=== PATIENT | male | born 1955 | race Caucasian/White ===

== ENCOUNTER 2017-11-17 12:28 | Emergency (ER) | payer BC ==
[~2017-11-17] VITALS: Ht 182.9 cm; Wt 105.0 kg
[~2017-11-17 12:28] MED LIST: BICALUTAMIDE50 MG PO; CEPHALEXIN500 MG PO; LOPRESSOR 550 MG/TAB PO; NORCO1 TA1 PO
[2017-11-17] MEDS ORDERED: LISINOPRIL20 MG PO (12:37)
[2017-11-17] MEDS ORDERED: KEFLEX500 M1 PO (13:25)
[2017-11-17 13:33] VITALS: BP 170/81
== END 2017-11-17 13:35 | disposition home or self-care (01) | DRG 605 ==
LOC: ED 12:28
PROC: 0HQHXZZ Repair Right Upper Leg Skin, External Approach (ICD-10-PCS; principal; 2017-11-17)
DX: S71.111A Laceration without foreign body, right thigh, initial encounter (principal); W55.29XA Other contact with cow, initial encounter; W45.0XXA Nail entering through skin, initial encounter; Y93.K9 Activity, other involving animal care; Y92.79 Other farm location as the place of occurrence of the external cause